=== PATIENT | male | born 1965 | race Caucasian/White ===

== ENCOUNTER 2017-03-19 18:02 | Emergency (ER) | payer OTHER ==
[~2017-03-19] VITALS: Ht 193 cm; Wt 79.8 kg
[~2017-03-19 18:02] MED LIST: CYCL-319 PO; HYDR-3498 PO; IBUP-1542 PO
[2017-03-19 18:29] VITALS: Ht 193 cm; Wt 79.8 kg
--- NOTE | 2017-03-19 19:11 | ERD ---
ER Documentation Chief Complaint Chief Complaint headache/dizziness after hitting head while working on car x 1 week HPI 51-year-old male, history of hepatitis C, presents with occipital headache, lightheadedness after hitting his head while working on a car about a week ago. Patient states he banged his head on the back twice, there was no loss consciousness. He reports lightheadedness. No vomiting. Patient denies chest pain, shortness breath, abdominal pain, vomiting, diarrhea. Denies fevers or chills. ROS All systems reviewed and are negative except as per history of present illness. Medications Home Meds Active Scripts Hydrocodone Bit-Acetaminophen* ([place]*) 5-325 Mg Tab, 1 TAB PO Q6 Y for PAIN, # 7 TAB Prov:TRINITY RICH M. 11/27/14 Ibuprofen* (Motrin*) 600 Mg Tab, 600 MG PO Q6H Y for PAIN AND OR ELEVATED TEMP, #30 Prov:TRINITY RICH M. 11/27/14 Cyclobenzaprine Hcl* (Cyclobenzaprine Hcl*) 10 Mg Tablet, 10 MG PO TID, #15 TAB Prov:ISAELROSMERY C 11/17/14 Ibuprofen* (Ibuprofen*) 600 Mg Tablet, 600 MG PO Q6 for 7 Days, TAB Prov:ISAELROSMERY C 11/17/14 Allergies Allergies: Coded Allergies: No Known Allergy (Unverified , 03/19/17) PMhx/Soc Medical and Surgical Hx: pt denies Surgical Hx History of Surgery: No Anesthesia Reaction: No Hx Neurological Disorder: No Hx Respiratory Disorders: No Hx Cardiac Disorders: No Hx Psychiatric Problems: No Hx Miscellaneous Medical Probl: Yes ((+) hepatitis C) Hx Alcohol Use: No Hx Substance Use: Yes (MARIJUANA) Hx Tobacco Use: No Smoking Status: Current some day smoker Physical Exam Vitals Vital Signs Date Time Temp Pulse Resp B/P Pulse Ox O2 Delivery O2 Flow Rate FiO2 03/19/17 18:29 97.2 72 20 121/69 98 Physical Exam General: Well-developed, well-nourished. The patient appears in no acute distress. HEENT: Head is normocephalic, atraumatic. No scleral icterus. Pupils are equal , round, and reactive. Neck: Supple. Nontender. Lungs: Clear to auscultation. Normal air movement. Heart: Regular rate and rhythm. S1 and S2 are normal. No murmurs, gallops, or rubs. Abdomen: Soft, nontender, nondistended. Bowel sounds are normoactive. Extremities: No clubbing or cyanosis. Normal pulses. Moving extremities x 4. No weakness. Neurologic: Alert and oriented 3. No focal deficits. Median nerves II 12 grossly intact, finger to nose normal. Speech and gait normal. Skin: Normal turgor. No rash or lesions. Results 24 hrs Laboratory Tests Test 03/19/17 19:09 Bedside Glucose 101mg/dL DIAGNOSTIC IMAGING REPORT Patient: NAHID GASTELUM : 1965 Age: 51 Sex: M MR #: [id number] DOS: 03/19/17 1900 Ordering MD: SEUN ZHU PA-C Location: [facility] Room/Bed: PROCEDURE: CT Brain without contrast. CLINICAL INDICATION: Trauma 1 week ago with dizziness and nausea. TECHNIQUE: CT scan of the brain was performed from the skull base through the vertex without contrast. Coronal and sagittal reformations were performed. The exam CTDI = 43.27 mGy and the DLP = 880.9 mGy-cm. DICOM images are available. One or more of the following dose reduction techniques were used: - Automated exposure control. - Adjustment of the mA and/or kV according to patient size. - Use of iterative reconstruction technique. COMPARISON: Exam dated 11/27/2014. FINDINGS: The degree of sulcal and cisternal prominence is within normal limits.There is no hydrocephalus, hemorrhage, herniation, or mass lesion. There is no intra or extra-axial fluid collection. The pham/white matter differentiation is well preserved. There is partial opacification of the right mastoid air cells and there is mucoperiosteal thickening in the left sphenoid sinus. There is a probable mucous retention cyst in the right sphenoid sinus. The remaining visualized paranasal sinuses and otomastoid air cells are well developed and pneumatized. The bony calvarium is intact. The surrounding soft tissues are unremarkable. IMPRESSION: 1. No acute intracranial abnormality. 2. Partial opacification of the right mastoid air cells and probable right sphenoid sinus mucous retention cyst, unchanged. RPTAT: HLBP .Unruly Diop MD, MD Date Time Electronically viewed and signed by .Unruly Diop MD, MD on 03/19/2017 21:04 .P/ Procedures/MDM 51-year-old male presents emergency department with head injury that occurred about a week ago he has had a headache and dizziness. Patient's CT of the head does not show evidence of a skull fracture, intracranial hemorrhage, mass- effect or midline shift. Patient is neurologically intact, he will be advised to take Tylenol or ibuprofen for pain. Departure Diagnosis: Primary Impression: Head injury, acute, without loss of consciousness Condition: SEUN Dinero PA-C Mar 19, 2017 19:11
--- NOTE | 2017-03-19 21:05 | RADRPT ---
PROCEDURE: CT Brain without contrast. CLINICAL INDICATION: Trauma 1 week ago with dizziness and nausea. TECHNIQUE: CT scan of the brain was performed from the skull base through the vertex without contra st. Coronal and sagittal reformations were performed. The exam CTDI = 43.27 mGy and the DLP = 880.9 mGy-cm. DICOM images are available. One or more of the following dose reduction techniques were used: - Automated exposure control. - Adjustment of the mA and/or kV according to patient size. - Use of iterative reconstruction technique. COMPARISON: Exam dated 11/27/2014. FINDINGS: The degree of sulcal and cisternal prominence is within normal limits.There is no hydroce phalus, hemorrhage, herniation, or mass lesion. There is no intra or extra-axial fluid collection. T he pham/white matter differentiation is well preserved. There is partial opacification of the right mastoid air cells and there is mucoperiosteal thickening in the left sphenoid sinus. There is a probable mucous retention cyst in the right sphenoid sinus. The remaining visualized paranasal sinuses and otomastoid air cells are well developed and pneumatiz ed. The bony calvarium is intact. The surrounding soft tissues are unremarkable. IMPRESSION: 1. No acute intracranial abnormality. 2. Partial opacification of the right mastoid air cells and probable right sphenoid sinus mucous re tention cyst, unchanged. RPTAT: HLBP .Unruly Diop MD, MD Date Time Electronically viewed and signed by .Unruly Diop MD, MD on 03/19/2017 21:04 .P/
== END 2017-03-19 21:27 | disposition home or self-care (01) ==
LOC: FTE 18:02
DX: S09.90XA Unspecified injury of head, initial encounter (principal); F17.210 Nicotine dependence, cigarettes, uncomplicated; R51 Headache; W22.8XXA Striking against or struck by other objects, initial encounter; Y92.89 Other specified places as the place of occurrence of the external cause
CPT/HCPCS: 70450; 82962; Z7502

== ENCOUNTER 2017-04-02 03:48 | Emergency (ER) | payer OTHER ==
[~2017-04-02] VITALS: Ht 182.9 cm; Wt 77.6 kg
[2017-04-02 03:51] VITALS: Ht 182.9 cm; Wt 77.6 kg
[2017-04-02] MEDS ORDERED: LIDOCAINE 1% (MDV) 20 ML INJ SC ONE (04:30)
[2017-04-02] MEDS ORDERED: IBUPROFEN 800 MG TAB PO ONE (04:30)
[2017-04-02] MEDS ORDERED: SULF1TAB31 PO (05:16)
[2017-04-02] MEDS ORDERED: CEPH-443 PO (05:16)
[2017-04-02] MEDS ORDERED: MUPI22OI2 NASAL (05:16)
[2017-04-02] MEDS ORDERED: IBUP800T25 PO (05:17)
[2017-04-02] MEDS ORDERED: HYDR-906 PO (05:17)
--- NOTE | 2017-04-02 05:26 | ERD ---
ER Documentation Chief Complaint Chief Complaint abscess left buttocks HPI 51-year-old male present ED complaining of abscess in the left buttocks 4-5 days. Patient reports his left buttock is painful and swollen. The pain radiates down his left leg. Patient reports history of frequent abscesses, mostly in the buttocks. The last abscess was about 1 year ago. Patient stated that he felt chills today. ROS All systems reviewed and are negative except as per history of present illness. Medications Home Meds Active Scripts Hydrocodone/Acetaminophen ([place] 5-325 Tablet) 1 Each Tablet, 1 TAB PO Q6H Y for PAIN, #5 TAB Prov:LATASHA DE LA ROSA SUPERVISOR [employer] SERVICES 04/02/17 Ibuprofen* (Motrin*) 800 Mg Tab, 800 MG PO Q6H Y for PAIN AND OR ELEVATED TEMP, #30 TAB Prov:LATASHA DE LA ROSA. SUPER[employer]OR [employer] 04/02/17 Mupirocin* (Bactroban*) 2% -22 Gram Oint...g., 1 APPLIC NASAL BID for 14 Days, EA Prov:LATASHA DE LA ROSA NP 04/02/17 Sulfamethoxazole/Trimethoprim* (Bactrim Ds* Tablet) 1 Each Tablet, 1 TAB PO BID , #14 TAB Prov:LATASHA DE LA ROSA NP 04/02/17 Cephalexin* (Keflex*) 500 Mg Capsule, 500 MG PO QID for 7 Days, CAP Prov:LATASHA DE LA ROSA NP 04/02/17 Hydrocodone Bit-Acetaminophen* ([place]*) 5-325 Mg Tab, 1 TAB PO Q6 Y for PAIN, # 7 TAB Prov:TRINITY RICH 11/27/14 Ibuprofen* (Motrin*) 600 Mg Tab, 600 MG PO Q6H Y for PAIN AND OR ELEVATED TEMP, #30 Prov:TRINITY RICH. 11/27/14 Cyclobenzaprine Hcl* (Cyclobenzaprine Hcl*) 10 Mg Tablet, 10 MG PO TID, #15 TAB Prov:ROSMERY KIRKLAND 11/17/14 Ibuprofen* (Ibuprofen*) 600 Mg Tablet, 600 MG PO Q6 for 7 Days, TAB Prov:ROSMERY KIRKLAND 11/17/14 Allergies Allergies: Coded Allergies: No Known Allergy (Unverified , 11/17/17) PMhx/Soc Medical and Surgical Hx: pt denies Surgical Hx History of Surgery: No Anesthesia Reaction: No Hx Neurological Disorder: No Hx Respiratory Disorders: No Hx Cardiac Disorders: No Hx Psychiatric Problems: No Hx Miscellaneous Medical Probl: Yes (HEP C) Hx Alcohol Use: No Hx Substance Use: No Hx Tobacco Use: Yes Smoking Status: Current every day smoker Physical Exam Vitals Vital Signs Date Time Temp Pulse Resp B/P Pulse Ox O2 Delivery O2 Flow Rate FiO2 04/02/17 03:51 98.3 90 20 119/74 99 Physical Exam General: Well-developed, well-nourished, conscious and coherent, in no distress Skin: Warm and dry without rash, good texture and turgor. A 10 x 15 cm area of induration on the left buttock, erythematous and tender. A large area of fluctuance in the center. Head: Normocephalic without evidence of trauma Eyes: Sclera and conjunctivae normal; pupils equal, round, and reactive to light; extraocular movements are intact Chest: Normal AP diameter. Good expansion without retractions. Nontender. Lungs are clear to auscultate bilaterally with good tidal volume Heart: Regular rate and rhythm. No murmur, rub, or gallops heard Extremities: Full range of motion. Good strength bilaterally. No clubbing, cyanosis, or edema. Peripheral pulses are intact. Sensation intact Neuro: Alert and oriented 4, GCS 15. Cranial nerves grossly intact. Motor and sensory exams nonfocal. Moves all extremities. Speech clear. Gait normal Results 24 hrs Current Medications Medications (Trade) Dose Ordered Sig/Dorys Route PRN Reason Start Time Stop Time Status Last Admin Dose Admin Lidocaine (Xylocaine 1% (Mdv) 20 ml) 20 ml ONCE ONCE SC 04/02/17 04:30 04/02/17 04:32 DC Ibuprofen (Motrin) 800 mg ONCE ONCE PO 04/02/17 04:30 04/02/17 04:32 DC Procedures/[facility] Procedure note: Incision and Drainage Verbal consent obtained for incision and drainage of patient's abscess. The area was prepped with Betadine. Lidocaine 1% was infiltrated for local anesthesia. After appropriate anesthesia, incision was made using #11 blade. Copious amount of purulent discharge, approximately 100 cc, was drained from the abscess. The abscess was probed for loculation. It was then irrigated with 60 ml of NS solution. Iodoform 1/4" packing tape was inserted into the abscess. The wound was then cleaned and dressed. Patient tolerated procedure well. While appearing 51-year-old male present ED with incision and drainage of a large abscess on his left buttock. Patient reports history of repeat abscesses in the past. I suspect patient may have colonized staph species. I will prescribe him Bactroban ointment to be applied nasally to eradicate colonization. Patient also given prescription of Bactrim DS and Keflex. First dose of Bactrim DS and Keflex given in the ED. Patient appears well, stable for discharge and outpatient management. Medical decision making shared with patient and family. Education provided to patient and family. Patient and family expressed understanding of the plan. Medications on discharge: Bactroban ointment, Bactrim DS, Keflex. Follow-up: Return to ED 2 days for wound check and dressing change. Disclaimer: Inadvertent spelling and grammatical errors are likely due to EHR/ dictation software use and do not reflect on the overall quality of patient care. Also, please note that the electronic time recorded on this note does not necessarily reflect the actual time of the patient encounter. Departure Diagnosis: Primary Impression: Abscess Condition: Stable Patient Instructions: Abscess, Incision And Drainage Referrals: [facility] YOU HAVE RECEIVED A MEDICAL SCREENING EXAM AND THE RESULTS INDICATE THAT YOU DO NOT HAVE A CONDITION THAT REQUIRES URGENT TREATMENT IN THE EMERGENCY DEPARTMENT. FURTHER EVALUATION AND TREATMENT OF YOUR CONDITION CAN WAIT UNTIL YOU ARE SEEN IN YOUR DOCTORS OFFICE WITHIN THE NEXT 1-2 DAYS. IT IS YOUR RESPONSIBILITY TO MAKE AN APPOINTMENT FOR FOLOW-UP CARE. IF YOU HAVE A PRIMARY DOCTOR --you should call your primary doctor and schedule an appointment IF YOU DO NOT HAVE A PRIMARY DOCTOR YOU CAN CALL OUR PHYSICIAN REFERRAL HOTLINE AT IF YOU CAN NOT AFFORD TO SEE A PHYSICIAN YOU CAN CHOSE FROM THE FOLLOWING [facility] [address] [place] [facility] [place] [address] [facility] [address] [facility] [address] [facility] [address] [facility]. [facility] [address] Additional Instructions: Return to this facility in 2 DAYS for a follow-up exam.Return sooner if your condition worsens. LATASHA DE LA ROSA NP Apr 02, 2017 05:26
[2017-04-02] MEDS ORDERED: TRIMETHOPRIM/SULFAMETHOX (DS) TAB PO ONE (05:30)
[2017-04-02] MEDS ORDERED: CEPHALEXIN 500 MG CAP PO ONE (05:30)
== END 2017-04-02 05:35 | disposition home or self-care (01) ==
LOC: FTE 03:48
DX: L02.31 Cutaneous abscess of buttock (principal); F17.210 Nicotine dependence, cigarettes, uncomplicated
CPT/HCPCS: 10061; Z7502; Z7610

== ENCOUNTER 2017-04-04 23:16 | Emergency (ER) | payer OTHER ==
[~2017-04-04] VITALS: Ht 193 cm; Wt 80.9 kg
[~2017-04-04 23:16] MED LIST changes: +CEPH-443 PO; +HYDR-906 PO; +IBUP800T25 PO; +MUPI22OI2 NASAL; +SULF1TAB31 PO
[2017-04-04 23:36] VITALS: Ht 193 cm; Wt 80.9 kg
--- NOTE | 2017-04-05 00:19 | ERD ---
ER Documentation Chief Complaint Chief Complaint Wound check to left buttock HPI This is a 51-year-old male presents to the ER for wound check to the left buttocks where an abscess was drained 2 days ago. Patient states he is feeling a lot better, he is taking his antibiotics and no longer has fever or chills. ROS 12 point review of systems was done, all negative except per HPI. Medications Home Meds Active Scripts Hydrocodone/Acetaminophen ([place] 5-325 Tablet) 1 Each Tablet, 1 TAB PO Q6H Y for PAIN, #5 TAB Prov:LATASHA DE LA ROSA. UNDERCOVER OPERATOR 04/02/17 Ibuprofen* (Motrin*) 800 Mg Tab, 800 MG PO Q6H Y for PAIN AND OR ELEVATED TEMP, #30 TAB Prov:LATASHA DE LA ROSA. UNDERCOVER OPERATOR 04/02/17 Mupirocin* (Bactroban*) 2% -22 Gram Oint...g., 1 APPLIC NASAL BID for 14 Days, EA Prov:LATASHA DE LA ROSA NP 04/02/17 Sulfamethoxazole/Trimethoprim* (Bactrim Ds* Tablet) 1 Each Tablet, 1 TAB PO BID , #14 TAB Prov:LATASHA DE LA ROSA UNDERCOVER OPERATOR 04/02/17 Cephalexin* (Keflex*) 500 Mg Capsule, 500 MG PO QID for 7 Days, CAP Prov:LATASHA DE LA ROSA UNDERCOVER OPERATOR 04/02/17 Hydrocodone Bit-Acetaminophen* ([place]*) 5-325 Mg Tab, 1 TAB PO Q6 Y for PAIN, # 7 TAB Prov:TRINITY RICH 11/27/14 Ibuprofen* (Motrin*) 600 Mg Tab, 600 MG PO Q6H Y for PAIN AND OR ELEVATED TEMP, #30 Prov:TRINITY RICH. 11/27/14 Cyclobenzaprine Hcl* (Cyclobenzaprine Hcl*) 10 Mg Tablet, 10 MG PO TID, #15 TAB Prov:ROSMERY KIRKLAND C 11/17/14 Ibuprofen* (Ibuprofen*) 600 Mg Tablet, 600 MG PO Q6 for 7 Days, TAB Prov:ROMSERY KIRKLAND C 11/17/14 Allergies Allergies: Coded Allergies: No Known Allergy (Unverified , 03/19/17) PMhx/Soc History of Surgery: No Anesthesia Reaction: No Hx Neurological Disorder: No Hx Respiratory Disorders: No Hx Cardiac Disorders: No Hx Psychiatric Problems: No Hx Miscellaneous Medical Probl: Yes (hep c) Hx Alcohol Use: No Hx Substance Use: No Hx Tobacco Use: No Smoking Status: Current some day smoker Physical Exam Vitals Vital Signs Date Time Temp Pulse Resp B/P Pulse Ox O2 Delivery O2 Flow Rate FiO2 04/04/17 23:36 97.4 60 20 96/54 98 Physical Exam Const: [] Head: Atraumatic Resp: Clear to auscultation bilaterally Cardio: Regular rate and rhythm, no murmurs Skin: The abscess to the left buttocks, there is no surrounding erythema or areas of induration. Ext: No cyanosis, or edema Neur: Awake and alert Psych: Normal Mood and Affect Procedures/MDM Wound shows no evidence of infection, foreign body, neurologic injury, vascular injury, open joint or tendon laceration. Patient appropriate for outpatient follow up. Departure Diagnosis: Primary Impression: Encounter for wound re-check Condition: Stable Patient Instructions: Wound Care Additional Instructions: Call your primary care doctor TOMORROW for an appointment during the next 1-2 days.See the doctor sooner or return here if your condition worsens before your appointment time. ROSMERY KIRKLAND Apr 05, 2017 00:19
== END 2017-04-05 00:54 | disposition home or self-care (01) ==
LOC: FTE 23:16
DX: Z48.01 Encounter for change or removal of surgical wound dressing (principal); F17.210 Nicotine dependence, cigarettes, uncomplicated
CPT/HCPCS: 99281

== ENCOUNTER 2017-04-28 20:03 | Emergency (ER) | payer OTHER ==
[~2017-04-28] VITALS: Ht 182.9 cm; Wt 80.2 kg
[2017-04-28 20:48] VITALS: Ht 182.9 cm; Wt 80.2 kg
[2017-04-28] MEDS ORDERED: HYDROCODONE/APAP (5/325) TAB PO ONE (23:00)
[2017-04-28] MEDS ORDERED: LIDOCAINE 2% (MDV) 20 ML INJ INJ ONE (23:00)
[2017-04-29] MEDS ORDERED: CEPH-443 PO (00:20)
[2017-04-29] MEDS ORDERED: SULF1TAB31 PO (00:20)
[2017-04-29] MEDS ORDERED: IBUP-1542 PO (00:21)
[2017-04-29] MEDS ORDERED: HYDR-906 PO (00:21)
--- NOTE | 2017-04-29 01:03 | ERD ---
ER Documentation Chief Complaint Chief Complaint Lt arm pain, bump [id number] s/p puncture wound. HepC. +smoke HPI This is a 51-year-old male presents to the ER with a bump to his left arm which started a month ago after he suffered a puncture wound while fixing his car. Patient has a past medical history of hepatitis C. Area is very painful, red and warm to the touch. Patient has not tried anything for the pain. Patient has had fevers and chills. ROS 12 point review of systems was done, all negative except per HPI. Medications Home Meds Active Scripts Hydrocodone/Acetaminophen ([place] 5-325 Tablet) 1 Each Tablet, 1 TAB PO Q6H Y for PAIN, #7 TAB Prov:ISAELROSMERY MACK C 04/29/17 Ibuprofen* (Motrin*) 600 Mg Tab, 600 MG PO Q6, #30 TAB Prov:ISAELROSMERY C 04/29/17 Sulfamethoxazole/Trimethoprim* (Bactrim Ds* Tablet) 1 Each Tablet, 1 TAB PO BID , #14 TAB Prov:ROSMERY KIRKLAND C 04/29/17 Cephalexin* (Keflex*) 500 Mg Capsule, 500 MG PO BID for 7 Days, CAP Prov:ISAELROSMERY C 04/29/17 Hydrocodone/Acetaminophen ([place] 5-325 Tablet) 1 Each Tablet, 1 TAB PO Q6H Y for PAIN, #5 TAB Prov:LATASHA DE LA ROSA DOCUMENT MANAGEMENT SPECIALIST 04/02/17 Ibuprofen* (Motrin*) 800 Mg Tab, 800 MG PO Q6H Y for PAIN AND OR ELEVATED TEMP, #30 TAB Prov:LAATSHA DE LA ROSA. DOCUMENT MANAGEMENT SPECIALIST 04/02/17 Mupirocin* (Bactroban*) 2% -22 Gram Oint...g., 1 APPLIC NASAL BID for 14 Days, EA Prov:LATASHA DE LA ROSA. DOCUMENT MANAGEMENT SPECIALIST 04/02/17 Sulfamethoxazole/Trimethoprim* (Bactrim Ds* Tablet) 1 Each Tablet, 1 TAB PO BID , #14 TAB Prov:LATASHA DE LA ROSA. DOCUMENT MANAGEMENT SPECIALIST 04/02/17 Cephalexin* (Keflex*) 500 Mg Capsule, 500 MG PO QID for 7 Days, CAP Prov:LATASHA DE LA ROSA DOCUMENT MANAGEMENT SPECIALIST 04/02/17 Hydrocodone Bit-Acetaminophen* ([place]*) 5-325 Mg Tab, 1 TAB PO Q6 Y for PAIN, # 7 TAB Prov:TRINITY RICH M. 11/27/14 Ibuprofen* (Motrin*) 600 Mg Tab, 600 MG PO Q6H Y for PAIN AND OR ELEVATED TEMP, #30 Prov:TRINITY RICH. 11/27/14 Cyclobenzaprine Hcl* (Cyclobenzaprine Hcl*) 10 Mg Tablet, 10 MG PO TID, #15 TAB Prov:ROSMERY KIRKLAND C 11/17/14 Ibuprofen* (Ibuprofen*) 600 Mg Tablet, 600 MG PO Q6 for 7 Days, TAB Prov:ROSMERY KIRKLAND C 11/17/14 Allergies Allergies: Coded Allergies: No Known Allergy (Unverified , 03/19/17) PMhx/Soc Medical and Surgical Hx: pt denies Surgical Hx History of Surgery: No Anesthesia Reaction: No Hx Neurological Disorder: No Hx Respiratory Disorders: No Hx Cardiac Disorders: No Hx Psychiatric Problems: No Hx Miscellaneous Medical Probl: Yes (HEP C) Hx Alcohol Use: No Hx Substance Use: No Hx Tobacco Use: Yes Smoking Status: Current every day smoker Physical Exam Vitals Vital Signs Date Time Temp Pulse Resp B/P Pulse Ox O2 Delivery O2 Flow Rate FiO2 04/28/17 20:48 97.0 73 20 127/76 99 Physical Exam GENERAL: The patient is well developed and appropriate for usual state of health , in no apparent distress. HEENT: Atraumatic. CHEST: Clear to auscultation bilaterally. There are no rales, wheezes or rhonchi. HEART: Regular rate and rhythm. No murmurs, clicks, rubs or gallops. NEURO: Alert and oriented. SKIN: There is a large 5 cm x 6 cm abscess that is fluctuant, red and warm to the touch. There is no lymphatic streaking. Results 24 hrs Current Medications Medications (Trade) Dose Ordered Sig/Dorys Route PRN Reason Start Time Stop Time Status Last Admin Dose Admin Lidocaine (Xylocaine 2% (Mdv) 20 ml) 20 ml ONCE ONCE INJ 04/28/17 23:00 04/28/17 23:01 DC 04/28/17 23:10 Acetaminophen/ Hydrocodone Bitart ([place] (5/325)) 1 tab ONCE ONCE PO 04/28/17 23:00 04/28/17 23:01 DC 04/28/17 23:10 Procedures/MDM Abscess Incision and Drainage with irrigation by me: Location: Right upper arm Anesthesia: Local 2% Lidocaine Technique: Irrigated. Disrupted loculations w/ instrumentation , please amount of purulent discharge is expressed Packin inch iodoform Complications: Neurovascularly intact post procedure 48 hour wound check. Scar minimization instructions given. Patient's skin symptoms have stabilized while they have been evaluated in the department and are appropriate for outpatient care and work up. Patient will be sent home with Keflex and Bactrim. He also be sent with ibuprofen and [place] for pain. Exam and w/u not consistent w/ sepsis, deep space infection, or foreign body. Departure Diagnosis: Primary Impression: Abscess Condition: Stable Patient Instructions: Abscess, Incision And Drainage Additional Instructions: Return to this facility in 2 DAYS for a follow-up exam.Return sooner if your condition worsens. ROSMERY KIRKLAND Apr 29, 2017 01:03
== END 2017-04-29 00:56 | disposition home or self-care (01) ==
LOC: FTE 20:03
DX: L02.413 Cutaneous abscess of right upper limb (principal); F17.210 Nicotine dependence, cigarettes, uncomplicated; R40.2142 Coma scale, eyes open, spontaneous, at arrival to emergency department; R40.2252 Coma scale, best verbal response, oriented, at arrival to emergency department; R40.2362 Coma scale, best motor response, obeys commands, at arrival to emergency department
CPT/HCPCS: 10061; Z7502; Z7610

== ENCOUNTER 2018-01-26 05:11 | Emergency (ER) | END 2018-01-26 06:35 | disposition home or self-care (01) ==